=== PATIENT | female | born 1975 | race Caucasian/White ===

== ENCOUNTER → 2016-12-25 | Outpatient (CLI) | payer BC ==
[~2016-12-25] MED LIST: ACET50TA PO; DICL-234 PO; DICL1GEL TD; DOCU10ELUD PO; IBUP80TA PO; MOM30SS PO; PRENTAB74 PO; VICO5TAB16 PO
[2016-12-25 11:04] LABS: FREE T4 1.22 NG/DL (0.76-1.46)
== END ==
LOC: M SMT 08:37
PROVIDERS: ATTEND Orthopaedic Surgery
DX: G56.03 Carpal tunnel syndrome, bilateral upper limbs (principal)

== ENCOUNTER → 2016-12-25 | Outpatient (CLI) | payer BC ==
[2016-12-25 11:06] LABS: FOLATE 17.9 NG/ML
== END ==
LOC: M SMT 09:28
PROVIDERS: ATTEND Physician Assistant
DX: M25.532 Pain in left wrist (principal)

== ENCOUNTER → 2018-01-24 | Outpatient (REF) | payer BC | LOC: M LAB REF 13:22 | DX: D24.1 Benign neoplasm of right breast (principal) | CPT/HCPCS: 88305 ==

== ENCOUNTER → 2018-05-12 | Outpatient (REF) | payer BC | LOC: M LAB REF 05-13 15:52 | DX: L02.415 Cutaneous abscess of right lower limb (principal) | CPT/HCPCS: 87186 ==

== ENCOUNTER 2018-08-20 02:45 | Emergency (ER) | payer BC ==
[2018-08-20] MEDS: NS 1,000 ML IV (03:15)
[2018-08-20] MEDS: ONDANSETRON 4MG/2ML VIAL (J2405) IV (03:15)
[2018-08-20] MEDS: MORPHINE 4 MG/ML 1ML VIAL/SYRINGE (J2270) IV (03:54)
[2018-08-20 04:13] LABS: BASO % 0.3 % (0.0-1.0); EOS # 0.4 10^3/uL (0.0-0.50); EOS % 3.7 % (0.0-3.0); HEMATOCRIT 40.9 % (36.0-47.0); HEMOGLOBIN 12.8 g/dl (12.0-15.5); IMMATURE GRANULOCYTE % 0.2 % (0-3.0); LYMPH % 9.6 % (24.0-44.0); MEAN CORPUSCULAR HEMOGLOBIN 25.4 pg (27.0-33.0); MEAN CORPUSCULAR HGB CONC 31.3 g/dl (32.0-36.5); MEAN CORPUSCULAR VOLUME 81.2 fl (80.0-96.0); MONO # 0.5 10^3/uL (0.0-0.8); MONO % 4.7 % (0.0-5.0); NEUTROPHILS # 8.4 10^3/uL (1.8-7.7); NEUTROPHILS % 81.5 % (36.0-66.0); PLATELET COUNT, AUTOMATED 473 10^3/uL (150-450); RED BLOOD COUNT 5.04 10^6/uL (4.00-5.40); RED CELL DISTRIBUTION WIDTH 15.1 % (11.5-14.5); WHITE BLOOD COUNT 10.3 10^3/uL (4.0-10.0)
[2018-08-20 04:32] LABS: CONTROL LINE HCG INT CTR LINE PRESENT; HCG, SERUM QUALITATIVE NEGATIVE (NEGATIVE)
[2018-08-20 04:41] LABS: ALBUMIN 4.2 GM/DL (3.2-5.2); ALKALINE PHOSPHATASE 57 U/L (45-117); ALT/SGPT 27 U/L (12-78); ANION GAP 8 MEQ/L (8-16); AST/SGOT 14 U/L (7-37); BILIRUBIN,DIRECT 0.2 MG/DL (0.0-0.2); BILIRUBIN,TOTAL 0.7 MG/DL (0.2-1.0); BLOOD UREA NITROGEN 14 MG/DL (7-18); CALCIUM LEVEL 9.6 MG/DL (8.5-10.1); CARBON DIOXIDE LEVEL 26 MEQ/L (21-32); CHLORIDE LEVEL 106 MEQ/L (98-107); CREATININE FOR GFR 0.84 MG/DL (0.55-1.30); GLOMERULAR FILTRATION RATE > 60.0 (>58); GLUCOSE, FASTING 101 MG/DL (70-100); LIPASE 155 U/L (73-393); POTASSIUM SERUM 4.4 MEQ/L (3.5-5.1); SODIUM LEVEL 140 MEQ/L (136-145); TOTAL PROTEIN 7.7 GM/DL (6.4-8.2)
[2018-08-20 04:43] LABS: LACTIC ACID SEPSIS PROTOCOL 0.9 MMOL/L (0.4-2.0)
[2018-08-20] MEDS ORDERED: ISOVUE-370 76% 100ML VIAL (Q9967) As Ordered (04:52)
== END 2018-08-20 07:37 | disposition home or self-care (01) ==
LOC: M ED 02:45
DX: R10.9 Unspecified abdominal pain (principal)
CPT/HCPCS: J2270

== ENCOUNTER → 2018-09-20 | Outpatient (CLI) | payer BC ==
[~2018-09-20] MED LIST changes: -ACET50TA PO; -DICL-234 PO; -DICL1GEL TD; -DOCU10ELUD PO; +E-Z-GAS II EFFERVESCENT PACKET (SODIUM BICARB./CITRIC ACID/SIMETHICONE) As Ordered; +E-Z-HD 98% w/w 340GM SUSP BTL As Ordered; +E-Z-PAQUE 96% w/w SUSP 176GM BTL As Ordered; -IBUP80TA PO; -MOM30SS PO; -PRENTAB74 PO; -VICO5TAB16 PO
== END ==
LOC: M RAD 08:06
DX: R19.4 Change in bowel habit (principal); K56.0 Paralytic ileus; R19.7 Diarrhea, unspecified; K21.9 Gastro-esophageal reflux disease without esophagitis
CPT/HCPCS: 74245

== ENCOUNTER → 2018-10-11 | Outpatient (REF) | payer BC ==
[2018-10-19 00:06] LABS: FATS NEUTRAL Normal (.); FATS TOTAL Normal (.); O+P EXAM Final report (.)
[2018-10-19 00:06] LABS: H PYLORI STOOL ANTIGEN Negative (Negative)
== END ==
LOC: M LAB REF 18:00
DX: R19.4 Change in bowel habit (principal); K56.0 Paralytic ileus; R19.7 Diarrhea, unspecified
CPT/HCPCS: 87177

== ENCOUNTER → 2021-03-28 | Outpatient (REF) | payer BC ==
[~2021-03-28] MED LIST changes: +DICL-234 PO; +DICL1GEL TD; +DOCU5LIQ PO; -E-Z-GAS II EFFERVESCENT PACKET (SODIUM BICARB./CITRIC ACID/SIMETHICONE) As Ordered; -E-Z-HD 98% w/w 340GM SUSP BTL As Ordered; -E-Z-PAQUE 96% w/w SUSP 176GM BTL As Ordered; +IBUP80TA PO; +MAPA500T17 PO; +MOM30SS PO; +PRENTAB74 PO; +REGL10TA6 PO; +VICO5TAB16 PO; +ZOFR4TAB14 PO
== END ==
LOC: M LAB REF 15:07
PROVIDERS: ATTEND Physician Assistant
DX: Z01.812 Encounter for preprocedural laboratory examination (principal); Z20.822 Contact with and (suspected) exposure to COVID-19

== ENCOUNTER 2021-04-16 09:48 | Day surgery (SDC) | payer BC ==
[~2021-04-16] VITALS: Ht 170.2 cm; Wt 79.9 kg
[2021-04-16] VITALS (7 sets, daily range): BP systolic 96–123; BP diastolic 53–71
[2021-04-16] MEDS ORDERED: NS 1,000 ML IV ONE (10:05)
[2021-04-16] MEDS ORDERED: ONDANSETRON 4MG/2ML VIAL IV ONE ×2 (10:10→11:15)
[2021-04-16 10:47] LABS: BASO # 0.1 10^3/uL (0.0-0.2); BASO % 0.5 % (0.0-1.0); EOS # 0.1 10^3/uL (0.0-0.5); EOS % 0.4 % (0.0-3.0); HEMOGLOBIN 14.1 g/dl (12.0-15.5); LYMPH # 1.3 10^3/uL (1.5-5.0); LYMPH % 8.7 % (24.0-44.0); MEAN CORPUSCULAR HEMOGLOBIN 30.3 pg (27.0-33.0); MEAN CORPUSCULAR HGB CONC 32.8 g/dl (32.0-36.5); MEAN CORPUSCULAR VOLUME 92.3 fl (80.0-96.0); MONO # 0.8 10^3/uL (0.0-0.8); MONO % 5.6 % (2.0-8.0); NEUTROPHILS # 12.2 10^3/uL (1.5-8.5); NEUTROPHILS % 84.4 % (36.0-66.0); PLATELET COUNT, AUTOMATED 343 10^3/uL (150-450); RED BLOOD COUNT 4.66 10^6/uL (4.00-5.40); WHITE BLOOD COUNT 14.4 10^3/uL (4.0-10.0)
[2021-04-16] MEDS ORDERED: ISOVUE-370 76% 100ML VIAL As Ordered ONE (11:06)
--- NOTE | 2021-04-16 11:09 | REP ---
INDICATION: abdominall pain COMPARISON: None. TECHNIQUE: Portable AP view of the chest FINDINGS: The mediastinum and cardiac silhouette are within normal limits for portable technique. The lung dhaliwal are clear without acute consolidation, effusion, or pneumothorax. Skeletal structures are intact. IMPRESSION: No acute cardiopulmonary process appreciated. <Electronically signed by Otto Sutton > 04/16/21 [id number]
[2021-04-16 11:24] LABS: ALBUMIN 3.6 GM/DL (3.2-5.2); ALT/SGPT 70 U/L (12-78); BILIRUBIN,DIRECT < 0.1 MG/DL (0.0-0.2); BILIRUBIN,TOTAL 0.6 MG/DL (0.2-1.0); LIPASE 142 U/L (73-393); TOTAL PROTEIN 6.9 GM/DL (6.4-8.2)
--- NOTE | 2021-04-16 11:34 | REP ---
INDICATION: abdominal pain ro obstruction. COMPARISON: 08/20/2018 TECHNIQUE: Axial contrast-enhanced images from the lung bases to the pubic symphysis using 100 cc Isovue 370 intravenous contrast material. Coronal and sagittal reformations obtained.. This CT examination was performed using the following dose reduction techniques: Automated exposure control, adjustment of mA and/or kv according to the patient's size, and the use of iterative reconstruction technique. FINDINGS: Liver demonstrates stable 5.8 cm hemangioma in the left lateral segment. Spleen, pancreas, gallbladder, bilateral adrenal glands and kidneys are normal. The dilated fluid-filled appendix measures 12 mm diameter with periappendiceal stranding primarily noted at the tip and consistent with acute appendicitis (series 201; images 88-110). No drainable collection or abscess. Remainder of the small and large bowel is normal. Pelvis demonstrates normal bladder and enlarged myomatous uterus. No ascites. No free air. No intraperitoneal or retroperitoneal adenopathy. Abdominal aorta and vasculature appear normal. Musculoskeletal structures are intact and without acute osseous abnormality. IMPRESSION: 1. Acute appendicitis as described above. 2. Nonacute chronic findings include stable benign hepatic hemangioma and enlarged myomatous changes to the uterus <Electronically signed by Otto Sutton > 04/16/21 [id number]
[2021-04-16] MEDS ORDERED: MORPHINE 2 MG/ML 1ML VIAL (J2270) IV PRN ×3 (11:40→14:30)
[2021-04-16] MEDS ORDERED: PIPERACILLIN/TAZOBACTAM SOD 4.5 GM in D5W MINI-BAG PLUS 50 ML IV ONE (11:40)
[2021-04-16] MEDS ORDERED: ZOLP10TA2 PO (11:45)
[2021-04-16] MEDS ORDERED: OXYC-517 PO (11:45)
[2021-04-16] MEDS ORDERED: NITR100C2 PO (11:45)
[2021-04-16] MEDS ORDERED: LO LTAB PO (11:45)
[2021-04-16] MEDS ORDERED: D5W/0.45% SODIUM CHLORIDE 1,000 ML IV ONE (11:50)
[2021-04-16] MEDS ORDERED: BUPIVACAINE/EPIN 0.25% 30 ML VIAL As Ordered ONE (11:59)
[2021-04-16] MEDS ORDERED: fentaNYL 100 MCG/2 ML INJECTION (J3010) As Ordered ONE ×2 (12:27→13:47)
[2021-04-16] MEDS ORDERED: ONDANSETRON 4MG/2ML VIAL As Ordered ONE (12:27)
[2021-04-16] MEDS ORDERED: ROCURONIUM BROMIDE 50 MG/5 ML VIAL As Ordered ONE (12:27)
[2021-04-16] MEDS ORDERED: LIDOCAINE 2% 100MG/5ML SDV (FOR ANES.) As Ordered ONE (12:27)
[2021-04-16] MEDS ORDERED: MIDAZOLAM INJ 2MG/2ML VIAL (J2250 PER 1MG) As Ordered ONE (12:27)
[2021-04-16] MEDS ORDERED: propofoL 200 MG/20 ML VIAL As Ordered ONE (12:27)
[2021-04-16] MEDS ORDERED: ACETAMINOPHEN 1000MG 100ML IV BTL (OFIRMEV) (J0131 PER 10MG) As Ordered ONE (12:28)
[2021-04-16] MEDS ORDERED: dexameTHASONE 4 MG/ML 1ML VIAL (J1100 PER 1MG) As Ordered ONE (12:28)
[2021-04-16] MEDS ORDERED: SCOPOLAMINE 1MG TRANSDERMAL PATCH As Ordered ONE (13:29)
[2021-04-16] MEDS ORDERED: KETOROLAC 60MG 2ML VIAL As Ordered ONE (13:43)
[2021-04-16] MEDS ORDERED: SUGAMMADEX SODIUM 500 MG/5 ML VIAL (BRIDION) As Ordered ONE (13:43)
[2021-04-16] MEDS ORDERED: METOCLOPRAMIDE INJ 10MG/2ML VIAL (J2765 PER 1) As Ordered ONE (13:56)
[2021-04-16] MEDS ORDERED: ESMOLOL INJ 100MG/10ML VIAL As Ordered ONE (13:57)
[2021-04-16] MEDS ORDERED: HYDROmorphone HCL 2 MG/ML 1ML VIAL (J1170) As Ordered ONE (14:08)
[2021-04-16] MEDS ORDERED: NORCO, ANEXSIA 5/325MG TABLET (HYDROcodone/ACETAMINOPHEN) PO PRN (14:30)
[2021-04-16] MEDS ORDERED: ACETAMINOPHEN TAB 650MG DOSE (2X325MG) PO PRN (14:30)
[2021-04-16] MEDS ORDERED: fentaNYL 100 MCG/2 ML INJECTION (J3010) IV PRN (14:50)
[2021-04-16] MEDS ORDERED: ONDANSETRON 4MG/2ML VIAL IV PRN (14:50)
[2021-04-16] MEDS ORDERED: LR 1,000 ML IV SCH (14:50)
[2021-04-16] MEDS ORDERED: HYDROMORPHONE HCL 0.5 MG/ 0.5 ML SYRINGE (J1170 PER 1) IV PRN (14:50)
[2021-04-16] MEDS ORDERED: oxyCODONE 5MG TAB PO PRN (14:50)
[2021-04-16] MEDS: NS 1,000 ML IV SCH ×2 (15:31→23:47)
[2021-04-16] MEDS: NORCO, ANEXSIA 5/325MG TABLET (HYDROcodone/ACETAMINOPHEN) PO PRN (16:23)
[2021-04-16] MEDS: PIPERACILLIN/TAZOBACTAM SOD 3.375 GM in D5W MINI-BAG PLUS 50 ML IV SCH ×2 (18:24→23:47)
[2021-04-16] MEDS: KETOROLAC 30 MG/ML 1ML VIAL IV SCH (20:00)
[2021-04-16] MEDS: DOCUSATE SODIUM 100MG CAPSULE PO SCH (20:00)
[2021-04-17] MEDS: KETOROLAC 30 MG/ML 1ML VIAL IV SCH ×2 (02:40→07:34)
[2021-04-17] MEDS: NORCO, ANEXSIA 5/325MG TABLET (HYDROcodone/ACETAMINOPHEN) PO PRN (03:09)
[2021-04-17 04:00] VITALS: BP 105/49
--- NOTE | 2021-04-17 06:01 | RO ---
OPERATIVE NOTE DATE OF OPERATION: 04/16/2021 PREOPERATIVE DIAGNOSIS: Acute appendicitis. POSTOPERATIVE DIAGNOSIS: Acute appendicitis. PROCEDURE: Laparoscopic appendectomy. SURGEON: Paul Becerra MD SENIOR SOFTWARE PROJECT MANAGER: ANESTHESIA: General endotracheal anesthesia. ESTIMATED BLOOD LOSS: Minimal. FLUIDS: Crystalloids. BRIEF PROCEDURE SUMMARY: The patient was brought to the operating room, was given general anesthesia. After adequate anesthesia and preoperative antibiotics were given, the patient was prepped and draped in the usual sterile fashion. The next day epigastric incision was made with a skin knife. Blunt dissection was carried down to fascia. Veress needle placed into the abdominal cavity, insufflated to 15 mm of pressure. A dilating 12 mm trocar was placed under direct visualization. Suprapubic and left lower quadrant 5 mm trocars were placed. The patient was placed in Trendelenburg, left side down position. There was some turbid fluid in the pelvis and the appendix was seen, was not perforated, but definitely some fibrinous exudate on the appendix itself. Thus, the hormonic scalpel was used to take down the mesentery of the appendix down to the cecal wall. The cecum itself was mobilized to some extent as well using hormonic scalpel, taking down peritoneum, as well as some adhesions on the right side of the abdomen. Once these were taken down, the base of the appendix was transected using a AUBREY stapler, placed in an Endo Catch bag, brought out through the epigastric incision. The right lower quadrant was copiously irrigated until clear and the epigastric incision was closed with 0 Vicryl at the fascial layer with a Hieu-Johnnie. Next, all incisions were closed with 4-0 Vicryl. Steri-Strips and a dry sterile dressing was applied and the patient was awakened, extubated and brought to the recovery room, awake, alert and hemodynamically staple. Sponge and needle counts correct x2.
[2021-04-17] MEDS: PIPERACILLIN/TAZOBACTAM SOD 3.375 GM in D5W MINI-BAG PLUS 50 ML IV SCH (06:22)
[2021-04-17] MEDS: NS 1,000 ML IV SCH (06:30)
[2021-04-17] MEDS ORDERED: AUGM500T34 PO (07:12)
[2021-04-17] MEDS: DOCUSATE SODIUM 100MG CAPSULE PO SCH (07:34)
[2021-04-17 08:00] VITALS: BP 103/57
[2021-04-17] MEDS ORDERED: PANTOPRAZOLE 40MG VIAL (C9113 PER 1) IV SCH (09:00)
== END 2021-04-17 08:46 | disposition home or self-care (01) ==
LOC: M ED 09:48 → M SDC 12:00 → M MSPAV 15:25 → M SDC 04-17 08:46
PROVIDERS: ATTEND Surgery
DX: K35.890 Other acute appendicitis without perforation or gangrene (principal); Z88.5 Allergy status to narcotic agent
CPT/HCPCS: 44970; 71045; 74177; 80047; 80076; 81001; 83605; 83690; 84702; 85025; 87040; 87798; 88304; 93041; 96365; 96366; 96375; 96376; 99285; C9113; J0131; J1100; J1170; J1885; J2250; J2270; J2405; J2543; J2765; J3010; Q9967

== ENCOUNTER → 2021-08-06 | Outpatient (REF) | payer BC ==
[~2021-08-06] MED LIST changes: +AUGM500T34 PO; +LO LTAB PO; +NITR100C2 PO; +OXYC-517 PO; +ZOLP10TA2 PO
== END ==
LOC: M LAB REF 13:56
PROVIDERS: ATTEND Physician Assistant
DX: J06.9 Acute upper respiratory infection, unspecified (principal)

== ENCOUNTER → 2021-10-14 | Outpatient (REF) | payer BC | LOC: M LAB REF 09:14 | PROVIDERS: ATTEND Physician Assistant | DX: J06.9 Acute upper respiratory infection, unspecified (principal) ==

== ENCOUNTER → 2021-11-13 | Outpatient (REF) | payer BC | LOC: M LAB REF 09:34 | PROVIDERS: ATTEND Physician Assistant | DX: J06.9 Acute upper respiratory infection, unspecified (principal) ==

== ENCOUNTER → 2022-09-25 | Outpatient (CLI) | payer BC ==
[~2022-09-25] MED LIST changes: -DICL1GEL TD; +DICL3GEL2 TD
== END ==
LOC: M PLAIMG 12:22
PROVIDERS: ATTEND Physician Assistant
DX: M25.561 Pain in right knee (principal); M17.11 Unilateral primary osteoarthritis, right knee

== ENCOUNTER → 2022-10-17 | Outpatient (CLI) | payer BC | LOC: M RAD 09:35 | PROVIDERS: ATTEND Physician Assistant | DX: M23.8X1 Other internal derangements of right knee (principal); M22.41 Chondromalacia patellae, right knee; M85.661 Other cyst of bone, right lower leg ==

== ENCOUNTER → 2023-11-24 | Outpatient (REF) | payer BC | LOC: M SFHCWAGY 13:35 | PROVIDERS: ATTEND Specialist | DX: Z01.419 Encounter for gynecological examination (general) (routine) without abnormal findings (principal) | CPT/HCPCS: 87624; G0123 ==

== ENCOUNTER → 2025-05-31 | Outpatient (REF) | payer BC | LOC: M LAB REF 18:12 | PROVIDERS: ATTEND Nurse Practitioner Adult Health | DX: D22.71 Melanocytic nevi of right lower limb, including hip (principal) ==